=== PATIENT | male | born 1935 | race Caucasian/White ===

== ENCOUNTER 2021-01-11 07:18 | Day surgery (SDC) | payer OTHER, MEDICARE ==
[2021-01-10 13:14] LABS: Absolute Lymphocytes (CBC) 1.7 K/uL (0.7-4.9); Basophils % 0.7 % (0-1.3); Hematocrit 41.9 % (39.6-49.0); Lymphocytes % 20.7 % (15.3-44.8); MPV 8.7 fL (7.6-11.3); RBC Red Blood Cell Count 4.69 M/uL (4.33-5.43)
[2021-01-10 13:18] LABS: Protime INR 0.97
--- NOTE | 2021-01-10 13:20 | RAD REPORT ---
EXAM DESCRIPTION: Elio Olea (2 Views)01/10/2021 1:11 pm CLINICAL HISTORY: Preop/hypertension COMPARISON: 2010 FINDINGS: Small right lung calcified granuloma. The lungs appear clear of acute infiltrate. The heart is normal size IMPRESSION: No acute abnormalities displayed
[2021-01-10 13:28] LABS: Potassium 5.1 mmol/L (3.5-5.1)
[~2021-01-11 07:18] MED LIST: HEPA 1000U/500MLS 1,000 UNIT/500 ML BAG IV ONE; LIDOCAINE 1% 20 ML MDV ONE
[2021-01-11] MEDS ORDERED: NA CHLORIDE 0.9% 500 ML ONE (07:48)
[2021-01-11] MEDS ORDERED: MIDAZOLAM HCL 2 MG/2 ML INJ ONE (08:31)
[2021-01-11] MEDS ORDERED: ATROPINE SULF 1 MG/10 ML SYR IV ONE (08:31)
[2021-01-11] MEDS ORDERED: FENTANYL CITR 100 MCG/2 ML ONE (08:31)
--- NOTE | 2021-01-11 10:34 | EKG ---
Test Date: 2021-01-10 Test Time: 11:44:49 Energy Manager: RAYMON MEASUREMENT RESULTS: Intervals: Rate: 62 [place]: 216 QRSD: 74 QT: 378 QTc: 383 [place]: P: 53 [place]: 216 QRS: 0 T: 54 INTERPRETIVE STATEMENTS: Sinus rhythm with 1st degree AV block Otherwise normal ECG Compared to ECG 06/11/1993 02:08:00 First degree AV block now present Electronically Signed On 01-11-21 10:31:58 CDT by Oni Kraft
[2021-01-11 11:04] VITALS: TEMP 97
[2021-01-11 11:19] VITALS: BP 137/52; O2SAT 98
--- NOTE | 2021-01-11 13:25 | OP ---
Surgeon: Oni Kraft MD Zinc Plate Grainer: Mr. David Blackwood. Admitted to my service as an outpatient today to the labor relations manager on 01/11/2021. 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 Mr. Deleon is 85, was brought to the labor relations manager today as an outpatient. Has a history of hypertension, diabetes, coronary artery disease, and dyslipidemia. Has a history o f abdominal aortic aneurysm in the past. Has undergone endograft repair. Procedure In Detail: In the labor relations manager, he was prepped and draped in routine sterile fashion. Given V ersed and fentanyl for sedation. A 6-Welsh sheath introduced in the right common femoral artery suc cessfully. Angiography there was normal. Angio-Seal was used to close the case. A JR4 catheter was used to select the right common carotid and the left common carotid separately. He was found to hav e normal bilateral common carotid angiogram, normal bilateral external carotid. The left internal ca rotid was normal. The right internal carotid had a 60% to 70% stenosis. There were no complications . Blood Loss: 5 mL. Postoperative Diagnosis: Severe cerebrovascular accident. Plan: The plan is to review the film with the surgeon regarding possible right carotid endarterectom y. Anesthesia: Total conscious sedation 45 minutes. The patient will go home after 2 hours of bedrest. JOAQUIN/CEE Voice ID: [id number] Report ID: [id number]
== END 2021-01-11 11:19 | disposition home or self-care (01) ==
LOC: CCL 07:18
DX: I65.22 Occlusion and stenosis of left carotid artery (principal); I25.10 Atherosclerotic heart disease of native coronary artery without angina pectoris; I10 Essential (primary) hypertension; I71.4 Abdominal aortic aneurysm, without rupture; E78.2 Mixed hyperlipidemia; E11.9 Type 2 diabetes mellitus without complications
CPT/HCPCS: 93005; 85025; 80048; 36415; 85610; 82947 ×2; 85730; 71046; 36222; C1893; C1760; J2250; J3010; J7040; J1644

== ENCOUNTER 2022-03-12 06:30 | Day surgery (SDC) | payer OTHER, MEDICARE ==
--- NOTE | 2022-03-11 08:55 | RAD REPORT ---
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 Lungs: No evidence of edema or pneumonia. Pleural: No significant pleural effusions or pneumothorax. Cardiac: The heart size is within normal limits. Bones: No acute fractures. Other: IMPRESSION: No acute cardiopulmonary disease.
[2022-03-11 09:05] LABS: Absolute Lymphocytes (CBC) 1.3 K/uL (0.7-4.9); Hematocrit 42.4 % (39.6-49.0); Lymphocytes % 18.9 % (15.3-44.8); MCV 90.6 fL (80-100); MPV 7.9 fL (7.6-11.3); RBC Red Blood Cell Count 4.68 M/uL (4.33-5.43)
[2022-03-11 09:14] LABS: Protime INR 0.95
[2022-03-11 09:15] LABS: Potassium 4.7 mmol/L (3.5-5.1)
[2022-03-11 09:19] LABS: SARS-CoV-2 Antigen Rapid Res Negative (Negative)
[2022-03-12] MEDS ORDERED: NA CHLORIDE 0.9% 500 ML ONE (06:58)
[2022-03-12] MEDS ORDERED: FENTANYL CITR 100 MCG/2 ML ONE (07:00)
[2022-03-12] MEDS ORDERED: MIDAZOLAM HCL 2 MG/2 ML INJ ONE (07:00)
[2022-03-12] MEDS ORDERED: ATROPINE SULF 1 MG/10 ML SYR IV ONE (07:01)
[2022-03-12] MEDS ORDERED: NA CHLORIDE 0.9% 0 ML IV ONE (07:01)
--- NOTE | 2022-03-12 08:17 | OP ---
Surgeon: Oni Kraft MD Follow Up Clerk: Ms. Eliza Lazar. The patient will go home today after 2 hours of bedrest. I will make arrangements for followup. Admitted to my service as an outpatient on 03/12/2022. Mr. Deleon is an 86 years old, who has just had a right carotid endarterectomy approximately a year ago. Carotid Doppler followup showed severe stenosis in the right common carotid artery. Procedure In Detail: He was brought to the mechanical shop laborer today as an outpatient, prepped and draped in [facility] sterile fashion. Given Versed and fentanyl for sedation. He underwent common femoral artery angiogram and selective bilateral carotid angiogram. A 6-Burkinan sheath had been introduced in the [facility] common femoral artery successfully using the Seldinger technique and 10 cc of Xylocaine. Мария catheter left and the right JR4 were used to cannulate the right common carotid and then the left co mmon carotid separately. On the left side, he had moderate plaquing in the common carotid, internal carotid and external carotid. On the right side, his right common carotid artery had a 90% stenosis just before the right CEA site. There were no complications. Blood loss was 5 cc. Anesthesia: Total conscious sedation 30 minutes. Postoperative Diagnosis: Severe right CCA stenosis. Plan: For a right common carotid artery stent. I will plan for him to have that done in [place]. JOAQUIN/CEE Voice ID: [id number] Report ID: [id number]
[2022-03-12 09:10] VITALS: O2SAT 97
[2022-03-12 10:04] VITALS: BP 128/57
== END 2022-03-12 09:45 | disposition home or self-care (01) ==
LOC: CCL 06:30
DX: I65.21 Occlusion and stenosis of right carotid artery (principal); I73.9 Peripheral vascular disease, unspecified; I71.4 Abdominal aortic aneurysm, without rupture; I10 Essential (primary) hypertension; E78.2 Mixed hyperlipidemia; E11.9 Type 2 diabetes mellitus without complications; K21.9 Gastro-esophageal reflux disease without esophagitis; N40.0 Benign prostatic hyperplasia without lower urinary tract symptoms; Z20.822 Contact with and (suspected) exposure to COVID-19
CPT/HCPCS: 36222; 36415; 71046; 80048; 82947; 85025; 85610; 85730; 87811; C1760; C1893; G0269; J0583; J2250; J3010; J7040

== ENCOUNTER 2024-01-06 08:08 | Inpatient (IN) | payer OTHER ==
[2024-01-06] MEDS ORDERED: ONDANSETRON 4 MG/2 ML VIAL ONE (08:33)
[2024-01-06 08:49] LABS: Absolute Basophils 0.1 K/uL (0-0.5); Absolute Eosinophils 0.4 K/uL (0-0.5); Absolute Lymphocytes (CBC) 0.8 K/uL (0.7-4.9); Absolute Monocytes 0.7 K/uL (0.1-1.3); Absolute Neutrophil 8.2 K/uL (1.8-8.0); Basophils % 0.7 % (0-1.3); Eosinophils % 3.9 % (0-4.4); Hemoglobin 14.2 g/dL (13.6-17.9); MCHC 33.1 g/dL (32.0-36.0); MCV 90.6 fL (80-100); MPV 8.2 fL (7.6-11.3); Monocytes % 6.9 % (3.3-12.3); Neutrophils % 80.5 % (41.7-73.7); Nucleated Red Blood Cells % 0.1 % (0-0); Platelets 215 thou/uL (152-406); RBC Red Blood Cell Count 4.74 M/uL (4.33-5.43); Red Cell Distribution Width 14.1 % (12.1-15.2)
[2024-01-06 08:54] LABS: PT Prothrombin Time 10.9 SECONDS (9.5-12.5); Protime INR 0.99
--- NOTE | 2024-01-06 09:03 | RAD REPORT ---
EXAM DESCRIPTION: CT - Ct Stroke Brain Wo Cont - 01/06/2024 8:42 am CLINICAL HISTORY: STROKE ALERT COMPARISON: HEAD BRAIN W O CONTRAST dated 07/01/2011; Head angio dated 01/06/2024; Neck Angio dated TECHNIQUE: Noncontrast head CT images were obtained without IV contrast. Multiplanar reformats were generated and reviewed. All CT scans are performed using dose optimization technique as appropriate and may include automated exposure control or mA/KV adjustment according to patient size. FINDINGS: No intracranial hemorrhage, mass, or edema. Midline structures are unremarkable. Normal ventricular caliber for age. Medel-white matter differentiation is preserved, without evidence of acute infarct. No abnormal extra- axial fluid collections. Patchy deep white matter hypodensities, nonspecific, but suggestive of chronic small vessel ischemic changes. Mastoid air cells and visualized portions of the paranasal sinuses are clear. No acute bony findings. IMPRESSION: No evidence of an acute intracranial process. The findings were communicated to Cruz Hassan on 01/06/2024 at 08:56 hours.
[2024-01-06 09:05] LABS: Anion Gap 7.4 mEq/L (5.0-15.0); Potassium 4.4 mEq/L (3.5-5.1); Troponin High Sensitivity 4.5 pg/mL (<58.9)
--- NOTE | 2024-01-06 09:12 | RAD REPORT ---
EXAM DESCRIPTION: CT - Head angio - 01/06/2024 8:43 am CLINICAL HISTORY: dizziness, slurred speech COMPARISON: Ct Stroke Brain Wo Cont dated 01/06/2024; HEAD BRAIN W O CONTRAST dated 07/01/2011 TECHNIQUE: Axial CT angiography images of the head was performed with multiplanar and maximum intens ity projection reconstructions. Images performed following intravenous administration of 100mL Isovue 370. All CT scans are performed using dose optimization technique as appropriate and may include automated exposure control or mA/KV adjustment according to patient size. FINDINGS: No evidence of large vessel occlusion. No evidence of aneurysm or dissection flap is detec sandi. No flow-limiting stenosis or vascular malformation identified. The left vertebral artery is dominant. multifocal up to moderate narrowing along the right vertebral artery, although the vertebrobasilar junction is patent. Posterior cerebral arteries are patent. The visualized dural venous sinuses are grossly patent. 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 No other evidence of large vessel occlusion or flow-limiting stenosis.
--- NOTE | 2024-01-06 09:19 | RAD REPORT ---
EXAM DESCRIPTION: CT - Neck Angio - 01/06/2024 8:43 am CLINICAL HISTORY: slurred speech COMPARISON: Neck Angio dated 02/06/2021 TECHNIQUE: Axial CT angiography images of the neck was performed with multiplanar and maximum intens ity projection reconstructions. Images performed following intravenous administration of 100mL Isovue 370. All CT scans are performed using dose optimization technique as appropriate and may include automated exposure control or mA/KV adjustment according to patient size. Quantification of carotid stenosis, if any, is performed according to NASCET criteria. FINDINGS: A left aortic arch is identified with normal three vessel configuration of the great vesse ls. No significant flow abnormality is seen of the common carotid bilaterally. No significant stenosis is identified involving the cervical segments of both internal carotid arteri es. Non opacification of the nondominant right vertebral artery along V1 and most of the V2 segments. Slu ggish opacification along distal V2 and V3. The left vertebral artery shows variant anatomy arising d irectly from the arch, although the arch is not imaged. The left vertebral artery is patent. IMPRESSION: Non opacification of the non dominant right vertebral artery, favored to be chronic. The vertebrobasilar junction is patent. Please correlate for symptoms of posterior fossa ischemia. No other significant flow abnormality of the neck vessels is identified. CAROTID STENOSIS REFERENCE USING NASCET CRITERIA: % ICA stenosis = (1 - narrowest ICA diameter/diameter of distal cervical ICA) x 100. Mild - <50% stenosis. Moderate - 50-69% stenosis. Severe - 70-94% stenosis. Near occlusion - 95-99% stenosis. Occluded - 100% stenosis.
[2024-01-06] MEDS ORDERED: ASPIRIN 81 MG CHEWABLE TABLET ONE (09:49)
[2024-01-06] MEDS ORDERED: CLOPIDOGREL 75 MG TABLET ONE (09:49)
[2024-01-06] MEDS ORDERED: NA CHLORIDE 0.9% 500 ML ONE (09:50)
--- NOTE | 2024-01-06 12:28 | RAD REPORT ---
EXAM DESCRIPTION: RADChest Single View01/06/2024 10:04 am CLINICAL HISTORY: possible CVA COMPARISON: Chest Pa And Lat (2 Views) dated 03/11/2022; Chest Pa And Lat (2 Views) dated 01/10/2021; CHEST SINGLE VIEW dated 07/01/2011 TECHNIQUE: Portable AP view of the chest. FINDINGS: Overexposure limits evaluation of the lung cadena. The lungs are clear. No pneumothorax o r effusion. The cardiomediastinal contours are unremarkable. IMPRESSION: No acute cardiopulmonary process allowing for overexposure as above.
[2024-01-06] MEDS: NA CHLORIDE 0.9% 1,000 ML IV SCH (13:01)
[2024-01-06] MEDS: MECLIZINE HCL 12.5 MG TAB PO SCH (14:00)
--- NOTE | 2024-01-06 14:12 | EKG ---
Test Date: 2024-01-06 Test Time: 08:58:29 Newsagent: JOEY MEASUREMENT RESULTS: Intervals: Rate: 66 MD: 174 QRSD: 82 QT: 404 QTc: 423 [place]: P: 43 MD: 174 QRS: -15 T: 22 INTERPRETIVE STATEMENTS: Sinus rhythm with premature supraventricular complexes Low voltage QRS Borderline ECG Compared to ECG 01/10/2021 11:44:49 Atrial premature complex(es) now present Low QRS voltage now present First degree AV block no longer present Electronically Signed On 01-06-24 14:10:34 CDT by Chris Diana
--- NOTE | 2024-01-06 15:13 | RAD REPORT ---
EXAM DESCRIPTION: MRI - Brain Wo Cont - 01/06/2024 3:00 pm CLINICAL HISTORY: altered ms Headache, drowsiness COMPARISON: Head angio dated 01/06/2024 TECHNIQUE: Multi-sequence, multiplanar MR imaging of the brain was performed without contrast. FINDINGS: No intracranial hemorrhage, hydrocephalus or extra-axial fluid collections. Moderate brain atrophy. Moderate confluent T2/FLAIR hyperintensity in the periventricular and deep white matter is present compatible with chronic microvascular ischemic changes. No edema or shift of midline structur es. No findings to suspect brain mass. DWI is negative for acute CVA. Midline structures are normally formed. Mastoid air cells and paranasal sinuses are clear. IMPRESSION: No acute intracranial finding is seen. No acute CVA is evident.
[2024-01-06] MEDS ORDERED: MECLIZINE HCL 12.5 MG TAB ONE ×2 (16:19→21:21)
[2024-01-06] MEDS ORDERED: NA CHLORIDE 0.9% 1,000 ML ONE (16:20)
[2024-01-06 17:24] VITALS: BMI 24.3
--- NOTE | 2024-01-06 17:58 | EDPHYS ---
Physician Documentation [facility] Name: Jacob Deleon Jr Age: 88 yrs Sex: Male : 1935 Arrival Date: 01/06/2024 Time: 08:08 Bed 14 Private MD: ED Physician Cruz aHssan HPI: 01/05 09:58 This 88 yrs old Male presents to ER via EMS with complaints of dizziness, slurred rn speech. 09:58 The patient presents to the emergency department with a speech or higher order brain rn function problem, difficult walking, the patient is off balance. Onset: The symptoms/episode began/occurred yesterday. Associated signs and symptoms: Pertinent positives: dizziness, Pertinent negatives: fever, headache, seizure, syncope, blurred vision, double vision. Severity of symptoms: At their worst the symptoms were moderate in the emergency department the symptoms have improved. Current symptoms: Currently, the patient is not experiencing any symptoms. The patient has experienced similar episodes in the past. Patient reports started to feel dizzy yesterday, got better throughout the day. Woke up this morning feeling dizzy once again, trouble walking, fell in the bathroom. Denies injury from fall. No previous stroke. Takes aspirin and Plavix. Reports working outdoors heavily over the weekend. No chest pain.. Historical: - Allergies: 08:20 No Known Allergies; rs5 - PMHx: 08:20 Hypertensive disorder; Diabetes mellitus; Hypercholesterolemia; rs5 - PSHx: 08:20 None; rs5 - Immunization history:: Adult Immunizations up to date. - Infectious Disease History:: Denies. - Social history:: Smoking status: Patient denies any tobacco usage or history of. - Family history:: not pertinent. - Hospitalizations: : No recent hospitalization is reported. ROS: 09:58 Constitutional: Negative for fever, chills, and weight loss, Eyes: Negative for injury, rn pain, redness, and discharge, Neck: Negative for injury, pain, and swelling, Cardiovascular: Negative for chest pain, palpitations, and edema, Respiratory: Negative for shortness of breath, cough, wheezing, and pleuritic chest pain, Abdomen/GI: Positive for nausea and vomiting during dizzy episodes MS/Extremity: Negative for injury and deformity, Skin: Negative for injury, rash, and discoloration, Neuro: Positive for dizziness and difficulty walking, positive for slurred speech Exam: 09:58 Constitutional: This is a well developed, well nourished patient who is awake, alert, rn and in no acute distress. ENT: Dry mucous membranes Neck: No meningismus Cardiovascular: Regular rate and rhythm. No pulse deficits. Respiratory: No increased work of breathing, no retractions or nasal flaring. Abdomen/GI: Soft, non-tender MS/ Extremity: Pulses equal, no cyanosis. Neurovascular intact. Full, normal range of motion. Equal circumference. Neuro: Awake and alert, GCS 15, oriented to person, place, time, and situation. Mild slurred speech. Cranial nerves II-XII grossly intact. Motor strength 5/5 in all extremities. Sensory grossly intact. Cerebellar exam normal. 12:30 ECG was reviewed by the Attending Physician. rn Vital Signs: 08:22 BP 152 / 75; Pulse 70; Resp 17; Temp 98; Pulse Ox 97% on R/A; rs5 10:22 BP 145 / 71; Pulse 76; Resp 18; Pulse Ox 99% on R/A; rs5 NIH Stroke Scale Scores: 08:22 NIHSS Score: 0 rs5 MDM: 08:20 Patient medically screened. rn 08:21 ED course: Patient and report woke up at 330 this morning to use the bathroom and rn was not dizzy. Woke up again at 645 to use the bathroom and was having trouble walking and so, waking up . Family reports still slurred speech but slowly improving. Patient reports feels somewhat like his vertigo in the past but different at the same time.. ED course: Patient takes aspirin and Plavix. Patient not TNK candidate due to last known normal 5 hours ago.. 09:11 ED course: CT head and angios neg per Dr. Forde. rn 09:58 Data reviewed: vital signs, nurses notes, lab test result(s), EKG, radiologic studies, rn CT scan, and as a result, I will admit patient. Consideration of Admission/Observation Patient was admitted/placed on observation. Escalation of care including admission/observation considered. Care significantly affected by the following chronic conditions: Diabetes, Hypertension. Counseling: I had a detailed discussion with the patient and/or guardian regarding the historical points, exam findings, and any diagnostic results supporting the discharge/admit diagnosis, lab results, radiology results, the need for further work-up and treatment in the hospital. ED course: CT imaging negative for acute stroke. CT angio head and neck negative for acute LVO. 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 Patient improved with IV fluids and time here. Completely back to baseline at this time. Will admit for further workup and neurological consultation.. 01/05 08:21 Order name: Basic Metabolic Panel; Complete Time: 09:30 rn 01/05 08:21 Order name: CBC with Diff; Complete Time: :30 rn 01/05 08:21 Order name: High Sensitivity Troponin; Complete Time: :30 rn 01/05 08:21 Order name: Protime (+inr); Complete Time: :30 rn 01/05 08:21 Order name: Ptt, Activated; Complete Time: :30 rn 01/05 10:10 Order name: CREATININE WHOLE BLOOD; Complete Time: 10:17 EDMS 01/05 15:55 Order name: Troponin High Sensitivity; Complete Time: 17:03 EDIN 01/05 08:21 Order name: CT Head Angio; Complete Time: 09:30 rn 01/05 08:21 Order name: CT Neck Angio; Complete Time: 09:30 rn 01/05 08:21 Order name: CT Stroke Brain w/o Contrast; Complete Time: 09:30 rn 01/05 08:21 Order name: Stroke CXR 1 View; Complete Time: 17:03 rn 01/05 15:13 Order name: MRI; Complete Time: 17:03 EDIN 01/05 08:21 Order name: Accucheck; Complete Time: 09:12 rn 01/05 08:21 Order name: Cardiac monitoring; Complete Time: 09:12 rn 01/05 08:21 Order name: EKG - Nurse/Tech; Complete Time: 09:12 rn 01/05 08:21 Order name: IV Saline Lock; Complete Time: 09:12 rn 01/05 08:21 Order name: Labs collected and sent; Complete Time: 09:12 rn 01/05 08:21 Order name: NPO; Complete Time: 09:12 rn 01/05 08:21 Order name: O2 Per Protocol; Complete Time: 09:12 rn 01/05 08:21 Order name: O2 Sat Monitoring; Complete Time: 09:12 rn 01/05 08:21 Order name: Stroke Swallow Screen; Complete Time: 09:12 rn EC:30 Rate is 66 beats/min. Rhythm is regular. QRS [place] is Normal. NH interval is normal. QRS rn interval is normal. QT interval is normal. No Q waves. T waves are Normal. No ST changes noted. Clinical impression: NSR w/ Non-specific ST/T Changes. Interpreted by me. Reviewed by me. Administered Medications: 08:33 Drug: Ondansetron IVP 4 mg IVP once; over 2 minutes Route: IVP; Site: left antecubital; rs5 09:00 Follow up: Response: No adverse reaction rs5 09:45 Drug: Aspirin PO Chewable Tablet 324 mg PO once; 81 mg tablets x 4 Route: PO; rs5 10:20 Follow up: Response: No adverse reaction rs5 09:45 Drug: Clopidogrel PO 75 mg PO once Route: PO; rs5 10:25 Follow up: Response: No adverse reaction rs5 09:45 Drug: NS 0.9% IV 500 ml IV at bolus once Route: IV; Rate: bolus; Site: right rs5 antecubital; 10:05 Follow up: Response: No adverse reaction rs5 Disposition Summary: 01/06/24 10:01 Hospitalization Ordered Notes: Hospitalization Status: Inpatient Admission rn Provider: Fahad Cordova rn Condition: Stable rn Problem: new rn Symptoms: have improved rn Bed/Room Type: Standard rn Location: Telemetry/MedSurg (Inpatient)(01/06/24 20:42) Room Assignment: [facility](01/06/24 20:42) Diagnosis - Slurred speech rn - Ataxia, unspecified rn - Vertebrobasilar insufficiency rn Forms: - Medication Reconciliation Form rn - SBAR form rn - Leadership Thank You Letter rn NIH Stroke Scale - NIH Stroke Score Date: 01/06/2024 Time: 08:22 Total Score = 0 10. Dysarthria (speech clarity - read or repeat words) - 0(Normal) 11. Extinction and Inattention (visual/tactile/auditory/spatial/personal) - 0(No abnormality) 1a. Level of Consciousness (LOC) - 0(Alert) 1b. Level of Consciousness (LOC) (Month \T\ Age) - 0(Both) 1c. LOC Commands (Open \T\ Closes Eyes/Press Smith Helper) - 0(Both) 2. Best Gaze (Lateral Gaze Paresis) - 0(Normal) 3. Visual Field Loss - 0(No visual loss) 4. Facial Palsy - 0(Normal) 5a. Left Arm: Motor (10-second hold) - 0(No drift) 5b. Right Arm: Motor (10-second hold) - 0(No drift) 6a. Left Leg: Motor (5-second hold - always test supine) - 0(No drift) 6b. Right Leg: Motor (5-second hold - always test supine) - 0(No drift) 7. Limb Ataxia (finger/nose \T\ heel/banda - test with eyes open) - 0(Absent) 8. Sensory Loss (pinprick arms/legs/face) - 0(Normal) 9. Best Language: Aphasia (description/naming/reading) - 0(No aphasia) Initials: rs5 Signatures: Dispatcher [employer] EDMS Kami Francis Kimberly, RN RN kl Nieto, Roman, MD MD rn Sotelo, Ricky, RN RN rs5 Corrections: (The following items were deleted from the chart) 08:21 08:21 BASIC METABOLIC PANEL+C.LAB.BRZ ordered. EDMS EDMS 08:21 08:21 CBC+H.LAB.BRZ ordered. EDMS EDMS 08:21 08:21 Troponin High Sensitivity+C.LAB.BRZ ordered. EDMS EDMS 08:21 08:21 PROTIME (+INR)+COAG.LAB.BRZ ordered. EDMS EDMS 08:21 08:21 PTT, ACTIVATED+COAG.LAB.BRZ ordered. EDMS EDMS 08:21 08:21 Head Angio+CT.RAD.BRZ ordered. EDMS EDMS 08:22 08:22 Neck Angio+CT.RAD.BRZ ordered. EDMS EDMS 08:22 08:22 CT-STROKE BRAIN W/O CONTRAST+CT.RAD.BRZ ordered. EDMS EDMS 08:22 08:22 Chest Single View+RAD.RAD.BRZ ordered. EDMS EDMS 12:10 10:01 Telemetry/MedSurg (Inpatient) rn bd 12:10 10:01 rn bd 20:42 12:10 [facility] ER HOLD bd kl 20:42 12:10 ERHOLD- bd kl
--- NOTE | 2024-01-06 17:58 | ER ---
Nurse's Notes [facility] Name: Jacob Deleon Jr Age: 88 yrs Sex: Male : 1935 Arrival Date: 01/06/2024 Time: 08:08 Bed 14 Private MD: Diagnosis: Slurred speech;Ataxia, unspecified;Vertebrobasilar insufficiency Presentation: 01/05 08:22 Chief complaint: EMS states: General weakness and dizziness x1 day, pt denies any rs5 changed in medication. Coronavirus screen: At this time, the client does not indicate any symptoms associated with coronavirus-19. Ebola Screen: No symptoms or risks identified at this time. Initial Sepsis Screen: Does the patient meet any 2 criteria? No. Patient's initial sepsis screen is negative. Does the patient have a suspected source of infection? No. Patient's initial sepsis screen is negative. Risk Assessment: Do you want to hurt yourself or someone else? Patient reports no desire to harm self or others. Onset of symptoms was January 05, 2024. 08:22 Method Of Arrival: EMS: [facility] rs5 08:22 Acuity: JESSICA 3 rs5 Triage Assessment: 08:20 General: Appears in no apparent distress. comfortable, Behavior is calm, cooperative. rs5 Pain: Denies pain. Historical: - Allergies: 08:20 No Known Allergies; rs5 - PMHx: 08:20 Hypertensive disorder; Diabetes mellitus; Hypercholesterolemia; rs5 - PSHx: 08:20 None; rs5 - Immunization history:: Adult Immunizations up to date. - Infectious Disease History:: Denies. - Social history:: Smoking status: Patient denies any tobacco usage or history of. - Family history:: not pertinent. - Hospitalizations: : No recent hospitalization is reported. Screenin:20 [facility] ED Fall Risk Assessment (Adult) History of falling in the last 3 months, rs5 including since admission No falls in past 3 months (0 pts) Confusion or Disorientation Intoxicated or Sedated No (0 pts) Impaired Gait Yes (1 pt) Mobility Assist Device Used Yes (1 pt) Altered Elimination No (0 pt) Score/Fall Risk Level 0 - 2 = Low Risk Oriented to surroundings, Maintained a safe environment. Abuse screen: Denies threats or abuse. 08:20 Nutritional screening: No deficits noted. Tuberculosis screening: No symptoms or risk rs5 factors identified. Assessment: 08:21 General: Appears in no apparent distress. comfortable, Behavior is calm, cooperative. rs5 Pain: Denies pain. Neuro: Level of Consciousness is awake, alert, obeys commands, Oriented to person, place, time, situation, Reports dizziness, weakness. Cardiovascular: Patient's skin is warm and dry. Rhythm is regular. Respiratory: Airway is patent Respiratory effort is even, unlabored, Respiratory pattern is regular, symmetrical. GI: Abdomen is round non-distended, Abd is soft and non tender X 4 quads. Reports nausea. : No signs and/or symptoms were reported regarding the genitourinary system. EENT: No signs and/or symptoms were reported regarding the EENT system. Derm: Skin is intact, Skin is pink, warm \T\ dry. Musculoskeletal: Range of motion: intact in all extremities. 09:12 Reassessment: Patient and/or family updated on plan of care and expected duration. Pain rs5 level reassessed. Patient is alert, oriented x 3, equal unlabored respirations, skin warm/dry/pink. GI: Patient currently denies nausea. 10:25 Reassessment: No changes from previously documented assessment. rs5 Vital Signs: 08:22 BP 152 / 75; Pulse 70; Resp 17; Temp 98; Pulse Ox 97% on R/A; rs5 10:22 BP 145 / 71; Pulse 76; Resp 18; Pulse Ox 99% on R/A; rs5 NIH Stroke Scale Scores: 08:22 NIHSS Score: 0 rs5 ED Course: 08:20 Patient arrived in ED. rn 08:20 Cruz Hassan MD is Attending Physician. rn 08:22 Mick Diaz RN is Primary Nurse. rs5 08:22 Arm band placed on right wrist. rs5 08:24 Triage completed. rs5 08:30 Inserted saline lock: 22 gauge in left antecubital area, using aseptic technique. Blood rs5 collected. 08:44 CT Head Angio In Process Unspecified. EDMS 08:44 CT Neck Angio In Process Unspecified. EDMS 08:44 CT Stroke Brain w/o Contrast In Process Unspecified. EDMS 10:01 Fahad Cordova MD is Hospitalizing Provider. rn 10:06 Stroke CXR 1 View In Process Unspecified. EDMS 10:20 No provider procedures requiring assistance completed. rs5 10:20 Patient admitted, IV remains in place. rs5 10:20 Patient has correct armband on for positive identification. Placed in gown. Bed in low rs5 position. Call light in reach. Side rails up X2. Administered Medications: 08:33 Drug: Ondansetron IVP 4 mg IVP once; over 2 minutes Route: IVP; Site: left antecubital; rs5 09:00 Follow up: Response: No adverse reaction rs5 09:45 Drug: Aspirin PO Chewable Tablet 324 mg PO once; 81 mg tablets x 4 Route: PO; rs5 10:20 Follow up: Response: No adverse reaction rs5 09:45 Drug: Clopidogrel PO 75 mg PO once Route: PO; rs5 10:25 Follow up: Response: No adverse reaction rs5 09:45 Drug: NS 0.9% IV 500 ml IV at bolus once Route: IV; Rate: bolus; Site: right rs5 antecubital; 10:05 Follow up: Response: No adverse reaction rs5 Medication: 10:20 VIS not applicable for this client. rs5 Outcome: 10:01 Decision to Hospitalize by Provider. rn 10:20 Admitted to ER Hold. Please see [facility] for further documentation. rs5 10:20 Condition: stable 10:20 Discharge instructions given to 22:49 Patient left the ED. pc2 NIH Stroke Scale - NIH Stroke Score Date: 01/06/2024 Time: 08:22 Total Score = 0 10. Dysarthria (speech clarity - read or repeat words) - 0(Normal) 11. Extinction and Inattention (visual/tactile/auditory/spatial/personal) - 0(No abnormality) 1a. Level of Consciousness (LOC) - 0(Alert) 1b. Level of Consciousness (LOC) (Month \T\ Age) - 0(Both) 1c. LOC Commands (Open \T\ Closes Eyes/Child Day Care Provider) - 0(Both) 2. Best Gaze (Lateral Gaze Paresis) - 0(Normal) 3. Visual Field Loss - 0(No visual loss) 4. Facial Palsy - 0(Normal) 5a. Left Arm: Motor (10-second hold) - 0(No drift) 5b. Right Arm: Motor (10-second hold) - 0(No drift) 6a. Left Leg: Motor (5-second hold - always test supine) - 0(No drift) 6b. Right Leg: Motor (5-second hold - always test supine) - 0(No drift) 7. Limb Ataxia (finger/nose \T\ heel/banda - test with eyes open) - 0(Absent) 8. Sensory Loss (pinprick arms/legs/face) - 0(Normal) 9. Best Language: Aphasia (description/naming/reading) - 0(No aphasia) Initials: rs5 Signatures: Dispatcher [employer] EDCruz Jackson MD MD rn Sotelo, Ricky RN RN rs5 Arti sorto, RN RN pc2 Corrections: (The following items were deleted from the chart) 08:47 08:21 GI: Abdomen is round non-distended, Abd is soft and non tender X 4 quads. rs5 rs5
--- NOTE | 2024-01-06 19:22 | P.SSS ---
Patient History Date of Service: 01/06/24 Reason for admission: DIZZY. History of Present Illness: GIANLUCA COMES WITH VERTIGO, NOT ABLE TO WALK WITHOUT STAGGERING. ER DOCTOR DECIDED TO ADMIT. HE HAS NO NEUROLOGICAL SYMPTOMS. HE HAS NAUSEA WITH THE VERTIGO. Allergies No Known Allergies Allergy (Verified 03/11/22 08:14) Home medications list reviewed: Yes - Past Medical/Surgical History Has patient received pneumonia vaccine in the past: No - Social History Smoking Status: Never smoker Review of Systems 10-point ROS is otherwise unremarkable Physical Examination - Vital Signs Temperature: 98.0 F Blood Pressure: 142/77 Pulse: 70 Respirations: 16 Pulse Ox (%): 99 - Physical Exam General: Alert, In no apparent distress HEENT: Atraumatic, PERRLA, Mucous membr. moist/pink, EOMI, Sclerae nonicteric Neck: Supple, 2+ carotid pulse no bruit, No LAD, Without JVD or thyroid abno rmality Respiratory: Clear to auscultation bilaterally, Normal air movement Cardiovascular: Regular rate/rhythm, Normal S1 S2 Gastrointestinal: Normal bowel sounds, No tenderness Musculoskeletal: No tenderness Integumentary: No rashes Neurological: Normal gait, Normal speech, Normal strength at 5/5 x4 extr, Normal tone, Normal affect Lymphatics: No axilla or inguinal lymphadenopathy - Studies Laboratory Data (last 24 hrs) 01/06/24 01/06/24 01/06/24 08:35 08:35 08:35 WBC 10.20 Hgb 14.2 Hct 43.0 Plt Count 215 PT 10.9 INR 0.99 APTT 30.0 Sodium 138 Potassium 4.4 BUN 17 Creatinine 0.98 Glucose 148 H - Diagnosis (Problem(s)) (1) Vertigo Current Visit: Yes Status: Acute Plan: 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 - Disposition Disposition: ROUTINE DISCHARGE
[2024-01-06 22:59] VITALS: O2SAT 99
[2024-01-07] MEDS: PNEUMOCOCCAL VACCINE 0.5 ML IMVAC ONE (07:49)
[2024-01-07] MEDS: CLOPIDOGREL 75 MG TABLET PO SCH (07:57)
[2024-01-07] MEDS: ASPIRIN EC 81 MG TAB PO SCH (07:57)
[2024-01-07 08:28] VITALS: BP 120/53; TEMP 96.7
== END 2024-01-07 09:50 | disposition home or self-care (01) | DRG 149 ==
LOC: ER 08:08 → ERHOLD 12:10 → 4TH 22:23
PROVIDERS: ADMIT Internal Medicine; ATTEND Internal Medicine
DX: R42 Dizziness and giddiness (principal); I10 Essential (primary) hypertension; E11.9 Type 2 diabetes mellitus without complications; E78.00 Pure hypercholesterolemia, unspecified; Z79.82 Long term (current) use of aspirin; Z79.02 Long term (current) use of antithrombotics/antiplatelets
CPT/HCPCS: 36415; 70450; 70496; 70498; 70551; 71045; 80048; 80061; 82550; 82565; 84484; 85025; 85610; 85730; 93005; 96374; 99285; J2405; J7030; J7040; J8597; Q9967